=== PATIENT | female | born 1945 | race Caucasian/White ===

== ENCOUNTER 2019-10-12 08:00 | Outpatient (CLI) | payer MEDICARE, BC ==
[2019-10-13 19:52] LABS: CANDIDA GROUP DNA NEGATIVE (NEGATIVE); CANDIDA KRUSEI DNA NEGATIVE (NEGATIVE); TRICHOMONAS VAGINALIS DNA NEGATIVE (NEGATIVE)
== END 2019-10-12 23:59 | disposition home or self-care (01) ==
LOC: LAB.R 08:00
PROVIDERS: ATTEND Obstetrics & Gynecology
DX: N76.0 Acute vaginitis (principal)
CPT/HCPCS: 87661; 87801

== ENCOUNTER 2020-01-10 19:30 | Observation (INO) | payer MEDICARE, BC ==
[2020-01-10 20:02] LABS: BILIRUBIN,URINE NEGATIVE (NEGATIVE); GLUCOSE, URINE (UA) NEGATIVE (NEGATIVE); KETONES,URINE (UA) 15 mg/dL (NEGATIVE); LEUKOCYTE ESTERASE, URINE NEGATIVE (NEGATIVE); NITRITE,URINE NEGATIVE (NEGATIVE); OCCULT BLOOD,URINE TRACE-INTA (NEGATIVE); PROTEIN,URINE 100 mg/dL (NEGATIVE); UROBILINOGEN,URINE 0.2 (NORMAL) E.U./dL (NORMAL)
[2020-01-10 20:02] LABS: BASOPHILS % (AUTO) 0.2 %; EOSINOPHILS # (AUTO) 0.1 10^3/uL (0.0-0.7); EOSINOPHILS % (AUTO) 0.8 %; HGB - HEMOGLOBIN 13.6 g/dL (12.0-16.0); LYMPHOCYTES % (AUTO) 8.7 %; MEAN CORPUSCULAR HEMOGLOBIN 28.8 pg (27.0-31.0); MEAN CORPUSCULAR HGB CONC 35.2 g/dL (32.0-36.0); MEAN CORPUSCULAR VOLUME 81.6 fL (81.0-99.0); MEAN PLATELET VOLUME 8.2 fL (7.9-10.8); MONOCYTES # (AUTO) 0.6 10^3/uL (0.0-1.0); MONOCYTES % (AUTO) 4.8 %; NEUTROPHILS # (AUTO) 10.1 10^3/uL (1.5-6.6); PLT - PLATELET COUNT 266 10^3/uL (130-450); RED BLOOD COUNT 4.73 10^6/uL (4.20-5.40); RED CELL DISTRIBUTION WIDTH 13.1 % (12.0-15.0); WHITE BLOOD COUNT 11.9 x10^3/uL (4.8-10.8)
[2020-01-10] MEDS ORDERED: SODIUM CHLORIDE 0.9% 1,000 ML IV STA (20:09)
[2020-01-10] MEDS ORDERED: ONDANSETRON 4 MG/2 ML VIAL IVP STA (20:09)
[2020-01-10] MEDS ORDERED: HYDROmorphone 1 MG/ML CARPUJECT IVP STA (20:09)
[2020-01-10 20:12] LABS: CLARITY,URINE CLEAR (CLEAR)
[2020-01-10 20:17] LABS: BACTERIA,URINE Rare /HPF (None Seen); RBC,URINE 0-5 /HPF (0-5); SQUAMOUS EPITHELIAL CELL,UR FEW Squamous (<= Few)
--- NOTE | 2020-01-10 20:17 | ED Physician Documentation ---
History of Present Illness - Stated complaint Stated Complaint: FEMALE - Chief complaint Chief Complaint: General - History obtained from History obtained from: Patient - History of Present Illness Timing: Other (About a week and a half ago she developed typical symptoms of UTI. She was started on antibiotics. Now over the last 3 days shows she has shaking chills, headache, myalgias. The worst is the nausea. H/A not too bad.) Review of Systems Constitutional: reports: Chills. denies: Fever Nose: denies: Rhinorrhea / runny nose, Congestion Throat: denies: Sore throat Cardiac: denies: Chest pain / pressure, Palpitations Respiratory: denies: Dyspnea, Cough GI: reports: Nausea, Vomiting, Diarrhea Neurologic: reports: Headache PD PAST MEDICAL HISTORY - Allergies Allergies/Adverse Reactions: Allergies Allergy/AdvReac Type Severity Reaction Status Date / Time Sulfa (Sulfonamide Allergy Unknown Verified 01/10/20 19:34 Antibiotics) PD ED PE NORMAL - Vitals Vital signs reviewed: Yes - General General: Alert and oriented X 3, No acute distress - HEENT HEENT: PERRL, EOMI - Neck Neck: Supple, no meningeal sign, No bony TTP - Cardiac Cardiac: RRR, No murmur - Respiratory Respiratory: No respiratory distress, Clear bilaterally - Abdomen Abdomen: Normal bowel sounds, Soft, Non tender - Female Female : Other (External pelvic examination done with nurse Young at the bedside demonstrates mild candidiasis, no significant cellulitis.) - Back Back: No CVA TTP, No spinal TTP - Derm Derm: Normal color, Warm and dry - Extremities Extremities: No edema, No calf tenderness / cord - Neuro Neuro: Alert and oriented X 3, Normal speech Results - Vitals Vitals: Vital Signs - 24 hr 01/10/20 01/10/20 01/10/20 19:34 19:40 20:59 Temperature 36.8 C Heart Rate 96 95 85 Respiratory 20 16 16 Rate Blood Pressure 200/117 H 187/98 H 168/81 H O2 Saturation 96 98 100 Oxygen O2 Source Room air - Labs Labs: Laboratory Tests 01/10/20 01/10/20 01/10/20 19:52 19:55 19:55 WBC 11.9 H RBC 4.73 Hgb 13.6 Hct 38.6 MCV 81.6 MCH 28.8 MCHC 35.2 RDW 13.1 Plt Count 266 MPV 8.2 Neut # (Auto) 10.1 H Lymph # (Auto) 1.0 L Vance # (Auto) 0.6 Eos # (Auto) 0.1 Baso # (Auto) 0.0 Absolute Nucleated RBC 0.00 Nucleated RBC % 0.0 Sodium 119 L* Potassium 3.7 Chloride 83 L Carbon Dioxide 21 Anion Gap 15.0 H BUN 12 Creatinine 0.8 Estimated GFR (MDRD) 70 L Glucose 117 H Lactic Acid Calcium 9.9 Total Bilirubin 1.3 H AST 36 ALT 33 Alkaline Phosphatase 77 Total Protein 7.5 Albumin 4.3 Globulin 3.2 Albumin/Globulin Ratio 1.3 Lipase 25 Urine Color YELLOW Urine Clarity CLEAR Urine pH 7.0 Ur Specific [place] 1.020 Urine Protein 100 H Urine Glucose (UA) NEGATIVE Urine Ketones 15 H Urine Occult Blood TRACE-INTA Urine Nitrite NEGATIVE Urine Bilirubin NEGATIVE Urine Urobilinogen 0.2 (NORMAL) Ur Leukocyte Esterase NEGATIVE Urine RBC 0-5 Urine WBC 0-3 Ur Squamous Epith Cells FEW Squamous Urine Bacteria Rare Ur Microscopic Review INDICATED Urine Culture Comments NOT INDICATED Influenza A (Rapid) Influenza B (Rapid) 01/10/20 01/10/20 20:22 21:06 WBC RBC Hgb Hct MCV MCH MCHC RDW Plt Count MPV Neut # (Auto) Lymph # (Auto) Vance # (Auto) Eos # (Auto) Baso # (Auto) Absolute Nucleated RBC Nucleated RBC % Sodium Potassium Chloride Carbon Dioxide Anion Gap BUN Creatinine Estimated GFR (MDRD) Glucose Lactic Acid 1.5 Calcium Total Bilirubin AST ALT Alkaline Phosphatase Total Protein Albumin Globulin Albumin/Globulin Ratio Lipase Urine Color Urine Clarity Urine pH Ur Specific [place] Urine Protein Urine Glucose (UA) Urine Ketones Urine Occult Blood Urine Nitrite Urine Bilirubin Urine Urobilinogen Ur Leukocyte Esterase Urine RBC Urine WBC Ur Squamous Epith Cells Urine Bacteria Ur Microscopic Review Urine Culture Comments Influenza A (Rapid) Negative Influenza B (Rapid) Negative PD MEDICAL DECISION MAKING - ED course ED course: 74-year-old woman with recent UTI presents with shaking chills but no fevers, generalized body aches and headache. She has mild candidiasis but that would not explain her symptoms, but for that she received some Diflucan. Work-up here shows pretty significant hyponatremia which is not a pre-existing problem for her. Probably a combination of fluid losses from nausea and diarrhea as well as being on diuretics. This would be hypovolemic hyponatremia. She is put on very gentle IV fluids, 75 mL an hour. Departure - Departure Disposition: ED Place in Observation Clinical Impression: Hyponatremia, Dehydration, Viral syndrome, Candidiasis Vomiting Qualifiers: Vomiting type: unspecified Vomiting Intractability: intractable Nausea presence: with nausea Qualified Code(s): R11.2 - Nausea with vomiting, unspecified Condition: Fair Discharge Date/Time: 01/10/20 22:29
[2020-01-10 20:19] LABS: ALBUMIN 4.3 g/dL (3.2-5.5); ALBUMIN/GLOBULIN RATIO 1.3 (1.0-2.2); BILIRUBIN,TOTAL 1.3 mg/dL (0.2-1.0); CALCIUM 9.9 mg/dL (8.5-10.3); CREATININE 0.8 mg/dL (0.4-1.0); TOTAL PROTEIN 7.5 g/dL (6.7-8.2)
[2020-01-10] MEDS ORDERED: FLUCONAZOLE 100 MG TABLET PO STA (20:39)
[2020-01-10] MEDS ORDERED: METOCLOPRAMIDE 10 MG/2 ML VIAL IVP STA (20:46)
[2020-01-10] MEDS ORDERED: SODIUM CHLORIDE FLUSH 0.9% 10 ML SYRINGE IVP PRN (21:31)
[2020-01-10] MEDS ORDERED: ACETAMINOPHEN 325 MG TABLET PO PRN (21:31)
[2020-01-10] MEDS ORDERED: ONDANSETRON ODT 4 MG TABLET TL PRN (21:31)
[2020-01-10] MEDS ORDERED: ALPRAZolam 0.25 MG TABLET PO PRN (22:07)
[2020-01-10] MEDS ORDERED: traZODone 50 MG TABLET PO PRN (22:07)
[2020-01-10] MEDS ORDERED: hydrALAZINE INJ 20 MG/ML VIAL IVP PRN (22:08)
--- NOTE | 2020-01-10 22:14 | HISTORY & PHYSICAL EXAMINATION ---
Chief Complaint - Chief Complaint Chief Complaint: Nausea and vomiting History of Present Illness - Admitted From Admitted From:: Emergency department - History Obtained From Records Reviewed: Emergency department records History obtained from: Patient and Dr. Hastings Exam Limitations: None - History of Present Illness HPI Comment/Other: Patient is a 74-year-old female who presents to the emergency room with chief complaint of nausea and vomiting x3 days. She has a past medical history of type 2 diabetes mellitus, controlled on oral anti-hyperglycemics, hypertension, chronic gout and recently was diagnosed with a UTI as an outpatient. She was started on oral antibiotics by her PCP about 9 days ago, Continued to have dysuria, so antibiotics were switched, and then she resumed her previous antibiotic. Patient does not recall the exact names, possible ceftazidime? For the last 3 days patient complains of feeling nauseous and having periodic episodes of vomiting with limited p.o. intake. She has had a couple of episodes of diarrhea but no abdominal pain. She denies any fever. She states that her dysuria has since resolved and does not feel like she has UTI anymore but has not been able to eat much. She presented to the emergency room for further evaluation where labs were drawn showing a significant hyponatremia with a sodium level of 119.Her lactic acid was normal.She had a very mild leukocytosis of 11.9. Vital signs were within regular parameters for her, with blood pressures more elevated and certainly not low. Given the hyponatremia and inability to tolerate p.o., observation bed was requested for symptom management and trending of the sodium level, for which the baseline is not known. 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 She lives with her on the [place]. She has 2 adult children who do not live with her. - Substance History Use: Uses substance without health or social issues: NONE - POLST Patient has POLST: No POLST Status: Full Code Meds/Allgy - Allergies Allergies/Adverse Reactions: Allergies Allergy/AdvReac Type Severity Reaction Status Date / Time Sulfa (Sulfonamide Allergy Unknown Verified 01/10/20 19:34 Antibiotics) Review of Systems - Constitutional Constitutional: reports: Fatigue, Weakness. denies: Fever, Chills, Diaphoresis, Night sweats - Cardiovascular Cariovascular: denies: Chest pain - Respiratory Respiratory: denies: SOB at rest, SOB with exertion - Gastrointestinal Gastrointestinal: reports: Diarrhea, Nausea, Vomiting. denies: Abdominal pain, Constipation - Musculoskeletal Musculoskeletal: reports: Other (Cramping in bilateral legs, bilateral arms, right arm worse than left arm. Denies any swelling or skin color changes) - Integumentary Integumentary: denies: Rash Prior Level of Functionality: Fully independent Exam - Vital Signs Reviewed Vital Signs: Yes Vital Signs: Vital Signs x48h Temp Pulse Resp BP Pulse Ox 01/10/20 20:59 85 16 168/81 H 100 01/10/20 19:40 95 16 187/98 H 98 01/10/20 19:34 36.8 C 96 20 200/117 H 96 - Physical Exam General Appearance: positive: No acute distress Eyes Bilateral: positive: Normal inspection ENT: positive: ENT inspection nml, Pharynx nml Neck: positive: Nml inspection, Thyroid nml, No JVD Respiratory: positive: Chest non-tender, No respiratory distress, Breath sounds nml Cardiovascular: positive: Regular rate & rhythm, No murmur, No gallop Peripheral Pulses: positive: 2+ Abdomen: positive: Non-tender, No organomegaly, Nml bowel sounds Skin: positive: Color nml, No rash, Warm Extremities: positive: Nml appearance (Right upper extremity examined and found to have no circumferential edema, erythema, mildly tender to palpation diffusely without any evidence of localized focal tenderness), No pedal edema Neurologic/Psychiatric: positive: Oriented x3, CN's nml (2-12), Motor nml Sepsis Event Note (H) - Evaluation Current Stage of Sepsis: Ruled out Conclusion/Plan - Problem List (1) Hyponatremia Conclusion/Plan: Sodium level of 119 without any neurological deficits. Is unclear if this is acute or chronic given no previous labs to review. I suspect this is probably acute on at least mild chronic hyponatremia, especially given her medications with triamterene, in the setting of a solitary kidney. This is further exacerbated by the recent nausea and vomiting. Assuming this is hypovolemic w hich I suspect it is, should correct with gentle IV fluid hydration which I will continue with normal saline at 75 mL/h and repeat labs in the morning. (2) Nausea and vomiting Conclusion/Plan: Likely secondary to either viral gastroenteritis syndrome versus side effect from recent antibiotics for which she has completed greater than 1 week for the recent UTI that has now since resolved. Advance diet as tolerated. Continue antiemetics, IV fluids, monitor closely. Qualifiers: Vomiting Intractability: non-intractable (3) Type 2 diabetes mellitus Conclusion/Plan: Per patient, her home blood sugar checks have been within normal limits. Will hold metformin. Correct with insulin sliding scale. Check hemoglobin A1c in the morning. Continue diabetic diet to the extent that she can tolerate p.o. Qualifiers: Diabetes mellitus middle or intermediate school principal insulin use: without middle or intermediate school principal use Diabetes mellitus complication status: without complication Qualified Code(s): E11.9 - Type 2 diabetes mellitus without complications (4) Hypertension Conclusion/Plan: Presumably essential hypertension though this may be related to her solitary kidney status. In the setting of type 2 diabetes mellitus. Blood pressure moderately elevated initially in the ER, has since improved somewhat. Will resume home metoprolol, monitor blood pressure closely avoiding EDITA inhibitor for renal protection and avoid any triamterene for electrolyte disturbance. We will add hydralazine as needed for overnight coverage. (5) Gout, chronic Conclusion/Plan: Asymptomatic currently, given dehydration, will hold allopurinol. - Lab Results Lab results reviewed: Yes Fish Bones: 01/10/20 19:55 01/10/20 19:55 - Diagnostic Imaging Results Diagnostic Imaging Results: positive: Prelim report reviewed Core Measures - Anticipated LOS I expect patient to be DC'd or transferred within 96 hours.: Yes - DVT/VTE - Prophylaxis VTE/DVT Device ordered at admit?: Yes
[2020-01-10] MEDS: PROCHLORPERAZINE 10 MG/2 ML VIAL IVP PRN (22:46)
[2020-01-10] MEDS: SODIUM CHLORIDE FLUSH 0.9% 10 ML SYRINGE IVP SCH (22:47)
[2020-01-11] MEDS: METOPROLOL TARTRATE 25 MG TABLET PO SCH ×2 (00:03→08:44)
[2020-01-11] MEDS: SODIUM CHLORIDE 0.9% 1,000 ML IV SCH ×2 (00:04→08:34)
[2020-01-11 01:27] LABS: HB2 TOTAL 14.3 g/dL; HEMOGLOBIN A1C 0.5 g/dL; HEMOGLOBIN A1C % 5.4 % (4.6-6.2)
[2020-01-11] MEDS: HYDROcod/ACETAM 5/325 MG TABLET PO PRN ×2 (04:43→14:33)
[2020-01-11] MEDS: PROCHLORPERAZINE 10 MG/2 ML VIAL IVP PRN (04:43)
[2020-01-11 06:08] LABS: HGB - HEMOGLOBIN 12.3 g/dL (12.0-16.0); MEAN CORPUSCULAR HEMOGLOBIN 29.3 pg (27.0-31.0); MEAN CORPUSCULAR HGB CONC 35.2 g/dL (32.0-36.0); MEAN CORPUSCULAR VOLUME 83.1 fL (81.0-99.0); MEAN PLATELET VOLUME 9.8 fL (7.9-10.8); RED BLOOD COUNT 4.2 10^6/uL (4.20-5.40); RED CELL DISTRIBUTION WIDTH 13.2 % (12.0-15.0); WHITE BLOOD COUNT 9.1 x10^3/uL (4.8-10.8)
[2020-01-11 06:52] LABS: CALCIUM 9.4 mg/dL (8.5-10.3); CREATININE 0.8 mg/dL (0.4-1.0)
[2020-01-11] MEDS ORDERED: PANTOPRAZOLE 40 MG TABLET PO SCH (07:00)
[2020-01-11] MEDS ORDERED: POTASSIUM CHLORIDE 20 MEQ TABLET PO SCH (08:00)
--- NOTE | 2020-01-11 08:08 | PHARMACY PROGRESS NOTE ---
- Best Possible Medication History Admit Date and Time: 01/10/202130 Processed by: Pharmacy Medication History completed: Yes Secondary Source(s): Pharmacy records, Insurance records As the person ultimately responsible for medication therapy, providers are able to order a medication from an existing home medication list in [facility] via the "Reconcile Routine" prior to Confirmation of that medication by call center support consultant. Such practice is discouraged except when the physician, in their clinical judgment, deems that a medical need exists for a medication without regard to previous use.
[2020-01-11] MEDS: INSULIN ASPART 300 UNIT/3 ML PEN SUBQ SCH ×3 (08:32→16:38)
[2020-01-11] MEDS: SODIUM CHLORIDE FLUSH 0.9% 10 ML SYRINGE IVP SCH ×2 (08:33→16:39)
--- NOTE | 2020-01-11 12:47 | Discharge Plan ---
Discharge Plan Problem Reviewed?: Yes Disposition: Home, Self Care Condition: Fair Diet: Regular Activity Restrictions: Activity as Tolerated Shower Restrictions: No Driving Restrictions: No Instruction Topics: Nausea Vomit Control Health Concerns: You were in Observation status to help your nausea and vomiting that presumably caused you to have a very low sodium level. The sodium has only corrected slightly; perhaps you always have a lower than normal sodium level, which therefore needs medical evaluation and can be done as an outpatient. Advance your diet as tolerated and resume your previous medications. Stay well HYDRATED WITH ELECTROLYTE-CONTAINING LIQUIDS (like broths, soups, Pedialyte, Gatorade or Propel). The COVID result is not back yet, call your PCP to get the final results. You should see your PCP in the next 4-5 days for hospital follow-up. Plan of Treatment: As above. Care Goals: Improvement in symptoms and stabilization are the goals. Assessment: The patient understands. Additional Instructions or Follow Up instructions: If you have new or worsening symptoms, call your PCP for advice or go to the ER. No Smoking: If you smoke, Please STOP! Call for help. Follow-up with: Li De La Torre MD [Primary Care Provider] -
[2020-01-11 12:56] LABS: CALCIUM 9.3 mg/dL (8.5-10.3); CREATININE 0.8 mg/dL (0.4-1.0)
[2020-01-11] MEDS ORDERED: SODIUM CHLORIDE 0.9% 500 ML IV ONE (13:02)
[2020-01-11 16:49] VITALS: BP 168/74
[2020-01-11 18:06] LABS: CREATININE 0.8 mg/dL (0.4-1.0)
--- NOTE | 2020-01-11 18:27 | DISCHARGE SUMMARY ---
Discharge Summary Admit Date: 01/10/20 Discharge Date: 01/11/20 Discharging Provider: Dr Martha Dejesus Primary Care Provider: Dr Li Barker Code Status: Attempt Resuscitation Condition at Discharge: Fair Discharge Disposition: 01 Home, Self Care - HPI History of Present Illness: From the admission H&P of Dr Natan Kaur: Patient is a 74-year-old female who presents to the emergency room with chief complaint of nausea and vomiting x3 days. She has a past medical history of type 2 diabetes mellitus, controlled on oral anti-hyperglycemics, hy pertension, chronic gout and recently was diagnosed with a UTI as an outpatient. She was started on oral antibiotics by her PCP about 9 days ago, Continued to have dysuria, so antibiotics were switched, and then she resumed her previous antibiotic. Patient does not recall the exact names (possible ceftazidime). For the last 3 days patient complains of feeling nauseous and having periodic episodes of vomiting with limited p.o. intake. She has had a couple of episodes of diarrhea but no abdominal pain. She denies any fever. She states that her dysuria has since resolved and does not feel like she has UTI anymore but has not been able to eat much. She presented to the emergency room for further evaluation where labs were drawn showing a significant hyponatremia with a sodium level of 119. Her lactic acid was normal. She had a very mild leukocytosis of 11.9. Vital signs were within regular parameters for her, with blood pressures more elevated and certainly not low. Given the hyponatremia and inability to tolerate p.o., an Observation bed was requested for symptom management and trending of the sodium level, for which the baseline is not known. She denied a cough, but due to GI symptoms and chills, a COVID nasal swab was sent from the ER. - HOSPITAL COURSE Hospital Course: 1) Hyponatremia She was started on iv hydration with Normal saline and her BMP was followed q6-8 hours. There was minimal improvement, even with saline bolusing, and overall she hovered at a sodium of 120. Since she was able to eat the following morning, cou ld hydrate and take salty foods, she was discharged with recommendations to stay hydrated with elctrolyte liquids and to have work-up of Hyponatremia as an outpatient with her PCP. 2) N/V There was no fever while here and she needed little anti-emetics and her symptoms resolved by the next morning. Her diet was advanced which she could tolerate, and she was discharged. She presumably had a viral gastroenteritis or nausea from antibiotics. The COVID swab result was pending at discharge and she was advised to get the result at PCP office follow-up. It has subsequently returned negative. 3) Type 2 DM She was on a carb controlled diet and ss Insulin coverage. Her A1c was 5.4 indicating very tight control on her Metformin. 4) HTN She was on her home BP meds. 5) Chronic gout Her Allopurinol was continued. - ALLERGIES Allergies/Adverse Reactions: Allergies Allergy/AdvReac Type Severity Reaction Status Date / Time Sulfa (Sulfonamide Allergy Unknown Verified 01/10/20 19:34 Antibiotics) - MEDICATIONS Home Medications: Ambulatory Orders Medication Instructions Recorded Confirmed ALPRAZolam [Alprazolam] 0.5 mg PO QPM PRN 01/11/20 01/11/20 Benazepril HCl 10 mg PO BID 01/11/20 01/11/20 Fluticasone [Flonase] 2 sprays GABRIELA DAILY 01/11/20 01/11/20 Hydrocodone/Acetaminophen [[place] 1 each PO Q6H PRN 01/11/20 01/11/20 5-325 Tablet] Lovastatin 20 mg PO QPM 01/11/20 01/11/20 Metformin HCl 500 mg PO BID 01/11/20 01/11/20 Metoprolol Tartrate 12.5 mg PO BID 01/11/20 01/11/20 Omeprazole 20 mg PO DAILY 01/11/20 01/11/20 Triamterene/Hydrochlorothiazid 1 each PO DAILY 01/11/20 01/11/20 [Triamterene-Hctz 37.5-25 mg Tb] allopurinoL [Allopurinol] 150 mg PO DAILY 01/11/20 01/11/20 metroNIDAZOLE [Metronidazole] 1 applic TOP QPM 01/11/20 01/11/20 - PHYSICAL EXAM AT DISCHARGE General Appearance: positive: No acute distress, Alert Eyes Bilateral: positive: Normal inspection, EOMI ENT: positive: ENT inspection nml, No signs of dehydration Neck: positive: Nml inspection, No JVD Respiratory: positive: No respiratory distress Cardiovascular: positive: Regular rate & rhythm Abdomen: positive: Non-tender, No distention Skin: positive: Color nml Extremities: positive: No pedal edema - LABS Result Diagrams: 01/11/20 05:49 01/11/20 17:47 - DIAGNOSTIC IMAGING Diagnostic Imaging Results: Final report reviewed - SEPSIS Current Stage of Sepsis: Ruled out - FOLLOW UP Follow Up: She was advised to see her PCP in the next 4-5 days. - TIME SPENT Time Spent in Discharge (Minutes): 45
== END 2020-01-11 19:54 | disposition home or self-care (01) ==
LOC: ED 19:30 → MS2 21:31
PROVIDERS: ADMIT Family Medicine Sports Medicine; ATTEND Internal Medicine
DX: E87.1 Hypo-osmolality and hyponatremia (principal); R11.2 Nausea with vomiting, unspecified; B37.49 Other urogenital candidiasis; E11.9 Type 2 diabetes mellitus without complications; I10 Essential (primary) hypertension; M10.9 Gout, unspecified; Z20.828 Contact with and (suspected) exposure to other viral communicable diseases; Z90.5 Acquired absence of kidney; Z87.440 Personal history of urinary (tract) infections; Z79.84 Long term (current) use of oral hypoglycemic drugs
CPT/HCPCS: 36415; 80048; 80053; 81001; 83036; 83605; 83690; 85025; 85027; 87040; 87275; 87276; 96361; 96374; 96375; 96376; 99284; 99285; A9270; G0378; J1170; J2765; U0004; 81003; 81599; 87086

== ENCOUNTER 2020-03-04 10:48 | Outpatient (CLI) | payer MEDICARE, BC ==
--- NOTE | 2020-03-04 18:53 | XRAY Report ---
PROCEDURE: Chest 2 View X-Ray INDICATIONS: DYSPNEA TECHNIQUE: 2 view(s) of the chest. COMPARISON: None. FINDINGS: Surgical changes and devices: None. Lungs and pleura: No pleural effusions or pneumothorax. Lungs are clear. Mediastinum: Mediastinal contours are normal. Heart size is normal. Bones and chest wall: No suspicious bony abnormalities. Soft tissues appear unremarkable. IMPRESSION: No acute cardiopulmonary disease. Reviewed by: Laurita Lares MD on 03/04/2020 6:52 PM PDT Approved by: Laurita Lares MD on 03/04/2020 6:52 PM PDT Station ID: [id number]
== END 2020-03-04 10:49 | disposition home or self-care (01) ==
LOC: DI 10:48
PROVIDERS: ATTEND Internal Medicine
DX: R06.00 Dyspnea, unspecified (principal)
CPT/HCPCS: 71046

== ENCOUNTER 2020-07-28 08:00 | Outpatient (CLI) | payer MEDICARE, BC | END 2020-07-28 23:59 | disposition home or self-care (01) | LOC: LAB.R 08:00 | PROVIDERS: ATTEND Obstetrics & Gynecology | DX: N76.0 Acute vaginitis (principal) | CPT/HCPCS: 81599; 87661 ==

== ENCOUNTER 2020-08-10 10:21 | Outpatient (CLI) | payer MEDICARE, BC ==
[2020-08-10 10:57] LABS: ALBUMIN 4.2 g/dL (3.2-5.5); ALBUMIN/GLOBULIN RATIO 1.4 (1.0-2.2); BILIRUBIN,TOTAL 0.8 mg/dL (0.2-1.0); CALCIUM 9.8 mg/dL (8.5-10.3); CREATININE 1.1 mg/dL (0.4-1.0); TOTAL PROTEIN 7.2 g/dL (6.7-8.2)
== END 2020-08-10 10:22 | disposition home or self-care (01) ==
LOC: LAB 10:21
PROVIDERS: ATTEND Obstetrics & Gynecology
DX: N89.8 Other specified noninflammatory disorders of vagina (principal); Z90.5 Acquired absence of kidney; R10.2 Pelvic and perineal pain; Q96.9 Turner's syndrome, unspecified
CPT/HCPCS: 36415; 80053

== ENCOUNTER 2020-09-13 14:13 | Outpatient (CLI) | payer MEDICARE, BC ==
[2020-09-13] MEDS ORDERED: IOVERSOL 320 100 ML VIAL IVP ONE ×2 (14:49→16:04)
[2020-09-13] MEDS ORDERED: IOVERSOL 320 50 ML VIAL ONE (14:49)
[2020-09-13] MEDS ORDERED: IOVERSOL 320 50 ML VIAL PO ONE (16:04)
--- NOTE | 2020-09-14 08:48 | CT Report ---
PROCEDURE: PELVIS W INDICATIONS: GONADAL DYSGENESIS, PELVIC PAIN, VAGINAL MASS CONTRAST: IV CONTRAST: Isovue 370 ml: 100 PO CONTRAST: Optiray 320 ml50 TECHNIQUE: After the administration of oral and IV contrast, 5 mm thick sections acquired from the iliac crests to the symphysis. 5 mm thick coronal and sagittal reformats were acquired. For radiation dose reduc tion, the following was used: automated exposure control, adjustment of mA and/or kV according to pa tient size. COMPARISON: None available. FINDINGS: Image quality: Excellent. Peritoneum and bowel: Contrast enhanced bowel loops demonstrate normal wall thickness and caliber. D iverticulosis in the sigmoid colon. No free fluid or air. Genitourinary: The urinary bladder is predominantly decompressed. Bladder wall thickness is normal. The uterus is absent. Left ovary appears normal for age containing a 10 mm cyst. The right ovary was not seen. No suspicious adnexal masses. Nodes and vessels: No iliac, pelvic, or inguinal adenopathy. Iliac vessels demonstrate normal size and enhancement. Bones: No suspicious bony lesions. Miscellaneous: No inguinal hernias. There is a prominent intramuscular lipoma within the right abdu ctor musculature of the upper thigh measuring approximately 8.5 x 11.8 x 18 cm. And contains a few ar eas of coarse calcification. IMPRESSION: 1. Nonvisualization of uterus or right ovary. No suspicious mass in the right adnexa. 2. Definition of the vaginal canal is suboptimal on CT scan. If there is continued concern for vagina l mass, MRI of the pelvis is recommended. 3. Slightly complex right inner thigh fatty mass. This is most likely benign, but malignancy is not e ntirely excluded. Further evaluation with MRI may be useful. 4. Sigmoid diverticulosis. Reviewed by: Lashay Hammond MD on 09/14/2020 8:47 AM PST Approved by: Lashay Hammond MD on 09/14/2020 8:47 AM PST Station ID: [id number]
== END 2020-09-13 14:14 | disposition home or self-care (01) ==
LOC: LAB 14:13 → DI 14:14
PROVIDERS: ATTEND Obstetrics & Gynecology
DX: R93.6 Abnormal findings on diagnostic imaging of limbs (principal); R93.89 Abnormal findings on diagnostic imaging of other specified body structures; R10.2 Pelvic and perineal pain
CPT/HCPCS: 72193; Q9967

== ENCOUNTER 2020-09-13 14:20 | Outpatient (CLI) | payer MEDICARE, BC ==
[2020-09-13 14:41] LABS: CALCIUM 10.6 mg/dL (8.5-10.3)
== END 2020-09-13 14:21 | disposition home or self-care (01) ==
LOC: LAB 14:20
PROVIDERS: ATTEND Obstetrics & Gynecology
DX: R10.2 Pelvic and perineal pain (principal)
CPT/HCPCS: 36415; 80048

== ENCOUNTER 2021-10-05 09:45 | Outpatient (CLI) | payer MEDICARE, BC ==
[2021-10-05 16:27] LABS: MUDS CUTOFF CONCENTRATIONS CUTOFF CONC BELOW:
[2021-10-05 17:53] LABS: BILIRUBIN,URINE NEGATIVE (NEGATIVE); GLUCOSE, URINE (UA) NEGATIVE (NEGATIVE); KETONES,URINE (UA) NEGATIVE (NEGATIVE); LEUKOCYTE ESTERASE, URINE NEGATIVE (NEGATIVE); NITRITE,URINE POSITIVE (NEGATIVE); OCCULT BLOOD,URINE NEGATIVE (NEGATIVE); PROTEIN,URINE NEGATIVE (NEGATIVE); UROBILINOGEN,URINE 0.2 (NORMAL) E.U./dL (NORMAL)
[2021-10-05 17:54] LABS: CLARITY,URINE CLEAR (CLEAR)
[2021-10-05 18:01] LABS: AMPHETAMINE SCREEN,URINE NEGATIVE (NEGATIVE); BARBITURATE SCREEN,UR NEGATIVE (NEGATIVE); BENZODIAZEPINES SCREEN, URINE POSITIVE (NEGATIVE); COCAINE SCREEN URINE NEGATIVE (NEGATIVE); METHADONE SCREEN, URINE NEGATIVE (NEGATIVE); METHAMPHETAMINES SCREEN, URINE NEGATIVE (NEGATIVE); OPIATE SCREEN, URINE POSITIVE (NEGATIVE); OXYCODONE SCREEN, URINE NEGATIVE (NEGATIVE); PROPOXYPHENE SCREEN, URINE NEGATIVE (NEGATIVE); THC CANNABINOID SCREEN, URINE NEGATIVE (NEGATIVE); TRICYCLIC ANTIDEPRESSANT,URINE NEGATIVE (NEGATIVE)
[2021-10-05 20:12] LABS: BACTERIA,URINE Moderate /HPF (None Seen); CASTS, URINE 0-2 Hyaline Casts /LPF; RBC,URINE None Seen /HPF (0-5); SQUAMOUS EPITHELIAL CELL,UR RARE Squamous (<= Few)
== END 2021-10-05 23:59 | disposition home or self-care (01) ==
LOC: LAB.R 09:45
PROVIDERS: ATTEND Internal Medicine
DX: R39.9 Unspecified symptoms and signs involving the genitourinary system (principal); R30.0 Dysuria; Z79.891 Long term (current) use of opiate analgesic
CPT/HCPCS: 80306; 81001; 81003; 87086; 87181

== ENCOUNTER 2021-10-17 11:19 | Outpatient (CLI) | payer MEDICARE, BC ==
[2021-10-17 16:26] LABS: BILIRUBIN,URINE NEGATIVE (NEGATIVE); GLUCOSE, URINE (UA) NEGATIVE (NEGATIVE); KETONES,URINE (UA) NEGATIVE (NEGATIVE); LEUKOCYTE ESTERASE, URINE NEGATIVE (NEGATIVE); NITRITE,URINE NEGATIVE (NEGATIVE); OCCULT BLOOD,URINE NEGATIVE (NEGATIVE); PROTEIN,URINE NEGATIVE (NEGATIVE); UROBILINOGEN,URINE 0.2 (NORMAL) E.U./dL (NORMAL)
[2021-10-17 16:35] LABS: BASOPHILS % (AUTO) 0.5 %; EOSINOPHILS # (AUTO) 0.1 10^3/uL (0.0-0.7); EOSINOPHILS % (AUTO) 2.2 %; HCT - HEMATOCRIT 38.8 % (37.0-47.0); LYMPHOCYTES # (AUTO) 0.9 10^3/uL (1.5-3.5); LYMPHOCYTES % (AUTO) 15.7 %; MEAN CORPUSCULAR HEMOGLOBIN 29.3 pg (27.0-31.0); MEAN CORPUSCULAR HGB CONC 33.5 g/dL (32.0-36.0); MEAN CORPUSCULAR VOLUME 87.6 fL (81.0-99.0); MEAN PLATELET VOLUME 9.2 fL (7.9-10.8); MONOCYTES # (AUTO) 0.4 10^3/uL (0.0-1.0); MONOCYTES % (AUTO) 6.8 %; NEUTROPHILS # (AUTO) 4.4 10^3/uL (1.5-6.6); NEUTROPHILS % (AUTO) 74.5 %; PLT - PLATELET COUNT 226 10^3/uL (130-450); RED BLOOD COUNT 4.43 10^6/uL (4.20-5.40); RED CELL DISTRIBUTION WIDTH 14.4 % (12.0-15.0); WHITE BLOOD COUNT 5.9 x10^3/uL (4.8-10.8)
[2021-10-17 16:40] LABS: CLARITY,URINE CLEAR (CLEAR)
[2021-10-17 16:47] LABS: ALBUMIN 4.4 g/dL (3.2-5.5); ALBUMIN/GLOBULIN RATIO 1.4 (1.0-2.2); ALKALINE PHOSPHATASE 75 IU/L (42-121); ALT ALANINE AMINOTRANSFERASE 23 IU/L (10-60); AST ASPARTATE AMINOTRANSFERASE 30 IU/L (10-42); BILIRUBIN,TOTAL 1.2 mg/dL (0.2-1.0); BUN - BLOOD UREA NITROGEN 24 mg/dL (6-20); CALCIUM 10.1 mg/dL (8.5-10.3); CARBON DIOXIDE - CO2 24 mmol/L (21-32); CHLORIDE 90 mmol/L (101-111); CHOL/HDL RATIO 1.6 (<4.4); CHOLESTEROL 146 mg/dL; CREATININE 0.8 mg/dL (0.4-1.0); GFR - MDRD 70 (>89); GLUCOSE 92 mg/dL (70-100); HDL CHOLESTEROL 92 mg/dL; LDL CHOLESTEROL,CALCULATED 43 mg/dL; LDL/HDL RATIO 0.5 (<4.4); POTASSIUM 4.5 mmol/L (3.5-5.0); SODIUM 124 mmol/L (135-145); TOTAL PROTEIN 7.5 g/dL (6.7-8.2); TRIGLYCERIDES 54 mg/dL; URIC ACID 5.5 mg/dL (2.6-7.2); VLDL CHOLESTEROL 11 mg/dL
[2021-10-17 17:04] LABS: CREATININE,URINE 31.7 mg/dL; MICROALBUMIN,URINE < 0.2 mg/dL (0-300.0)
[2021-10-17 20:41] LABS: ESTIMATED AVERAGE GLUCOSE 103 mg/dL (70-100); HEMOGLOBIN A1c% 5.2 % (4.27-6.07)
== END 2021-10-17 23:59 | disposition home or self-care (01) ==
LOC: LAB.R 11:19
PROVIDERS: ATTEND Internal Medicine
DX: Z00.00 Encounter for general adult medical examination without abnormal findings (principal); F41.9 Anxiety disorder, unspecified; M25.50 Pain in unspecified joint; M54.9 Dorsalgia, unspecified; I12.9 Hypertensive chronic kidney disease with stage 1 through stage 4 chronic kidney disease, or unspecified chronic kidney disease; E11.22 Type 2 diabetes mellitus with diabetic chronic kidney disease; N18.9 Chronic kidney disease, unspecified; F32.A Depression, unspecified; R30.0 Dysuria; E78.5 Hyperlipidemia, unspecified; M79.673 Pain in unspecified foot; M10.9 Gout, unspecified; Z13.6 Encounter for screening for cardiovascular disorders; G47.00 Insomnia, unspecified; Z79.899 Other long term (current) drug therapy
CPT/HCPCS: 80053; 80061; 81001; 81003; 82043; 82570; 83036; 83721; 84443; 84550; 85025; 87086

== ENCOUNTER 2021-11-19 17:03 | Outpatient (CLI) | payer MEDICARE, BC ==
[2021-11-19 17:48] LABS: BASOPHILS % (AUTO) 0.5 %; EOSINOPHILS # (AUTO) 0.3 10^3/uL (0.0-0.7); EOSINOPHILS % (AUTO) 3.6 %; HCT - HEMATOCRIT 38.7 % (37.0-47.0); HGB - HEMOGLOBIN 12.9 g/dL (12.0-16.0); MEAN CORPUSCULAR HEMOGLOBIN 29.1 pg (27.0-31.0); MEAN CORPUSCULAR HGB CONC 33.3 g/dL (32.0-36.0); MEAN CORPUSCULAR VOLUME 87.4 fL (81.0-99.0); MEAN PLATELET VOLUME 8.3 fL (7.9-10.8); MONOCYTES # (AUTO) 0.6 10^3/uL (0.0-1.0); MONOCYTES % (AUTO) 7.9 %; NEUTROPHILS # (AUTO) 6.1 10^3/uL (1.5-6.6); NEUTROPHILS % (AUTO) 75.6 %; PLT - PLATELET COUNT 303 10^3/uL (130-450); RED BLOOD COUNT 4.43 10^6/uL (4.20-5.40); RED CELL DISTRIBUTION WIDTH 14.4 % (12.0-15.0)
--- NOTE | 2021-11-19 17:49 | CT Report ---
PROCEDURE: HEAD WO INDICATIONS: Headache, vertigo TECHNIQUE: Noncontrast 4.5 mm thick angled axial sections acquired from the foramen magnum to the vertex. For r adiation dose reduction, the following was used: automated exposure control, adjustment of mA and/or kV according to patient size. COMPARISON: None. FINDINGS: Image quality: Excellent. CSF spaces: Basal cisterns are patent. No extra-axial fluid collections. Ventricles are normal in size and shape. Brain: No midline shift. No intracranial masses or hemorrhage. Heard-white matter interface is norm al. Skull and face: Calvarium and visualized facial bones are intact, without suspicious lesions. Sinuses: Visualized sinuses and mastoids are clear. IMPRESSION: No acute intracranial finding. Mild global cerebral volume loss and chronic microvascula r ischemic changes. Reviewed by: Vitaly Horne MD on 11/19/2021 5:48 PM PDT Approved by: Vitaly Horne MD on 11/19/2021 5:48 PM PDT Station ID: [id number]
[2021-11-19 18:04] LABS: CREATININE 0.8 mg/dL (0.4-1.0); POTASSIUM 3.8 mmol/L (3.5-5.0)
== END 2021-11-19 17:04 | disposition home or self-care (01) ==
LOC: DI 17:03
PROVIDERS: ATTEND Internal Medicine
DX: R51.9 Headache, unspecified (principal); H81.10 Benign paroxysmal vertigo, unspecified ear; E87.1 Hypo-osmolality and hyponatremia; R53.1 Weakness; I67.82 Cerebral ischemia
CPT/HCPCS: 36415; 80048; 85025

== ENCOUNTER 2021-11-30 06:40 | Outpatient (CLI) | payer MEDICARE, BC | END 2021-11-30 06:41 | disposition EMS.NT | LOC: EMS 06:40 | DX: R29.6 Repeated falls (principal); R42 Dizziness and giddiness ==

== ENCOUNTER 2021-11-30 13:40 | Outpatient (CLI) | payer MEDICARE, BC ==
--- NOTE | 2021-11-30 14:24 | CT Report ---
PROCEDURE: CT brain without contrast INDICATIONS: Altered mental status TECHNIQUE: Noncontrast 5 mm thick angled axial sections acquired from the foramen magnum to the vertex. For rad iation dose reduction, the following was used: automated exposure control, adjustment of mA and/or k V according to patient size. COMPARISON: None. FINDINGS: Image quality: Excellent. CSF spaces: Basal cisterns are patent. No extra-axial fluid collections. Ventricles are normal in size and shape. Brain: No midline shift. No intracranial masses or hemorrhage. Heard-white matter interface is norm al. Cerebral and cerebellar atrophy and multifocal white matter chronic ischemic change. Left enlarg ed perivascular space noted adjacent to the anterior commissure. Skull and face: Calvarium and visualized facial bones are intact, without suspicious lesions. Incide ntal hyperostosis frontalis interna noted. Bilateral intraocular lens replacements noted. Sinuses: Visualized sinuses and mastoids are clear. IMPRESSION: Atrophy and chronic ischemic change without acute hemorrhage or mass effect. Reviewed by: James Nathan MD on 11/30/2021 1:22 PM TIKA Approved by: James Nathan MD on 11/30/2021 1:22 PM AKDT Station ID: [id number]
== END 2021-11-30 13:41 | disposition home or self-care (01) ==
LOC: DI 13:40
PROVIDERS: ATTEND Internal Medicine
DX: G31.9 Degenerative disease of nervous system, unspecified (principal); I67.82 Cerebral ischemia; R41.82 Altered mental status, unspecified

== ENCOUNTER 2021-12-01 11:58 | Outpatient (CLI) | payer MEDICARE, BC | END 2021-12-01 11:59 | disposition critical access hospital (66) | LOC: EMS 11:58 | DX: R41.82 Altered mental status, unspecified (principal) | CPT/HCPCS: A0425; A0429 ==

== ENCOUNTER 2021-12-01 12:11 | Emergency (ER) | payer MEDICARE, BC ==
--- NOTE | 2021-12-01 12:24 | ED Physician Documentation ---
History of Present Illness - Stated complaint Stated Complaint: AMS - Additonal information Additional information: 76-year-old female is brought to the emergency department for evaluation of altered mental status. Per her she had a fall 3 days ago. Her has noticed over the last few days a declining mental status. This morning he found her slumped on the couch. He also reported to EMS that she is recently begun taking cephalexin for suspected urinary tract infection. Unclear if there have been fevers recently. BG 11 for EMS Patient presents to the emergency department disheveled and in nightgown. She has a very large hematoma and bruise on her left forehead. She is somewhat altered confused to place and time. GCS of 14, but actively trying to crawl oob using all 4 extremities. No obvious focal neuro deficits. meds: metformin, lasix, norco, keflex, statin at the bedside reports that 3 days ago patient had a fall in the bathroom in which she hit her head on the plant stand. There was no loss of consciousness. Since then she has become increasingly confused. She did see her primary care provider yesterday and they did an "ultrasound" which was a CT of the head and was negative. reports that on 19 November patient's primary care provider also prescribed hydrocodone for recurrent headaches. But since then he has only given the patient 3-1/2 tablets. He states that over the last month she has started to have a slow steady decline especially with memory changes but has gotten acutely worse over the last 3 days since she fell and struck her head. Review of Systems Unable to obtain: AMS, Confused Constitutional: denies: Fever, Chills Eyes: reports: Reviewed and negative Ears: reports: Reviewed and negative Throat: reports: Reviewed and negative Cardiac: reports: Reviewed and negative Respiratory: reports: Reviewed and negative GI: reports: Reviewed and negative Skin: reports: Abrasion (s) Musculoskeletal: reports: Reviewed and negative Neurologic: reports: Reviewed and negative PD PAST MEDICAL HISTORY - Past Medical History Cardiovascular: None Respiratory: None Neuro: None Endocrine/Autoimmune: Type 2 diabetes GI: GERD : Other Musculoskeletal: Gout - Past Surgical History /[employer]PER[employer]: Oophrectomy, Other - Present Medications Home Medications: Ambulatory Orders Medication Instructions Recorded Confirmed ALPRAZolam [Alprazolam] 0.5 mg PO QPM PRN 01/11/20 12/01/21 Benazepril HCl 10 mg PO BID 01/11/20 12/01/21 Lovastatin 20 mg PO QPM 01/11/20 12/01/21 Metformin HCl 500 mg PO BID 01/11/20 12/01/21 Metoprolol Tartrate 25 mg PO BID 01/11/20 12/01/21 Triamterene/Hydrochlorothiazid 1 each PO DAILY 01/11/20 12/01/21 [Triamterene-Hctz 37.5-25 mg Tb] Duloxetine HCl [Cymbalta] 60 mg PO DAILY 12/01/21 12/01/21 HYDROcod/ACETAM 5/325 [[employer] 5/325] 1 tablet PO Q6H PRN 12/01/21 12/01/21 Ondansetron Odt [Zofran Odt] 4 mg TL Q6H PRN 12/01/21 12/01/21 cephALEXin [Keflex] 500 mg PO BID 12/01/21 12/01/21 - Allergies Allergies/Adverse Reactions: Allergies Allergy/AdvReac Type Severity Reaction Status Date / Time Sulfa (Sulfonamide Allergy Unknown Verified 01/10/20 19:34 Antibiotics) - Social History Does the pt smoke?: No Smoking Status: Never smoker Does the pt drink ETOH?: No Does the pt have substance abuse?: No - Immunizations Immunizations are current?: No - POLST Patient has POLST: No POLST Status: Full Code PD ED PE EXPANDED - General General: Alert, Disheveled, poorly kept - HEENT HEENT: PERRL, EOMI, Other (Large yellowing bruise on the left upper forehead) - Cardiac Cardiac: Regular Rate, Radial strong equal, Pedal strong equal, Cap refill < 2 sec - Respiratory Respiratory: Clear to ausultation jacqueline. No: Distress - Abdomen Abdomen: Normal Bowel sounds. No: Tender to palpation - Derm Derm: Normal color, Warm and dry, Bruising - Extremities Extremities: Normal. No: Deformity, Tenderness - Neuro Neuro: Confused, CNII-XII intact, Normal speech, Other (Patient is very Hypermobile. Needs to be redirected frequently.) - GCS Eye Opening: Spontaneous Motor: Obeys Commands Verbal: Confused Total: 14 Results - Vitals Vitals: Vital Signs - 24 hr 12/01/21 12/01/2112/01/22 12:17 12:50 14:03 Temperature 36.6 C Heart Rate 99 101 H 114 H Respiratory 20 28 H 24 Rate Blood Pressure 135/116 H 162/146 H O2 Saturation 97 99 100 12/01/21 12/01/21 12/01/21 14:40 15:46 16:11 Temperature Heart Rate 128 H 98 112 H Respiratory 28 H 24 26 H Rate Blood Pressure 202/140 H 230/130 H 236/143 H O2 Saturation 100 96 98 12/01/21 12/01/21 12/01/21 16:26 16:59 17:13 Temperature 36.6 C Heart Rate 110 H 89 89 Respiratory 25 H 22 23 Rate Blood Pressure 226/131 H 196/147 H 175/143 H O2 Saturation 24 L 97 98 12/01/21 12/01/21 12/01/21 17:41 18:06 18:17 Temperature 37.6 C Heart Rate 108 H 116 H 113 H Respiratory 24 23 26 H Rate Blood Pressure 218/141 H 234/136 H 232/127 H O2 Saturation 95 98 99 Oxygen O2 Source Room air - EKG (time done) 1328 Rate: Rate (enter#) (108) Rhythm: Sinus tachycardia Intervals: Normal UT. No: Prolonged QT QRS: LVH Ischemia: Q waves (v2-v4) Compare to prior EKG: Old EKG unavailable Computer interpretation: Agree with computer 1455 Rate: Rate (enter#) (130) Rhythm: Sinus tachycardia Kimball: Normal Intervals: Normal UT. No: Prolonged QT QRS: LVH Ischemia: Q waves (V2-V5) Compare to prior EKG: Unchanged from prior EKG Computer interpretation: Agree with computer - Labs Labs: Laboratory Tests 12/01/21 12/01/21 12/01/21 12:25 12:25 12:25 WBC 8.7 RBC 4.67 Hgb 13.7 Hct 40.9 MCV 87.6 MCH 29.3 MCHC 33.5 RDW 14.1 Plt Count 255 MPV 8.6 Neut # (Auto) 7.1 H Lymph # (Auto) 0.9 L Buchanan # (Auto) 0.5 Eos # (Auto) 0.0 Baso # (Auto) 0.0 Absolute Nucleated RBC 0.00 Nucleated RBC % 0.0 PT INR Sodium 135 Potassium 2.8 L Chloride 95 L Carbon Dioxide 25 Anion Gap 15.0 H BUN 28 H Creatinine 0.9 Estimated GFR (MDRD) 61 L Glucose 109 H Calcium 10.1 Phosphorus Magnesium Total Bilirubin 1.7 H AST 40 ALT 30 Alkaline Phosphatase 66 Troponin I High Sens B-Natriuretic Peptide Total Protein 7.0 Albumin 4.2 Globulin 2.8 Albumin/Globulin Ratio 1.5 Lipase 24 TSH Thyroxine (T4) Urine Color Urine Clarity Urine pH Ur Specific [place] Urine Protein Urine Glucose (UA) Urine Ketones Urine Occult Blood Urine Nitrite Urine Bilirubin Urine Urobilinogen Ur Leukocyte Esterase Urine RBC Urine WBC Ur Squamous Epith Cells Urine Bacteria Ur Microscopic Review Urine Culture Comments Salicylates < 6.0 Urine Opiates Screen Ur Oxycodone Screen Urine Methadone Screen Ur Propoxyphene Screen Acetaminophen < 10 L Ur Barbiturates Screen Ur Tricyclics Screen Ur Phencyclidine Scrn Ur Amphetamine Screen U Methamphetamines Scrn U Benzodiazepines Scrn Urine Cocaine Screen U Cannabinoids Screen Ethyl Alcohol < 5.0 SARS-CoV-2 (PCR) 12/01/21 12/01/21 12/01/21 12:25 12:25 12:25 WBC RBC Hgb Hct MCV MCH MCHC RDW Plt Count MPV Neut # (Auto) Lymph # (Auto) Buchanan # (Auto) Eos # (Auto) Baso # (Auto) Absolute Nucleated RBC Nucleated RBC % PT INR Sodium Potassium Chloride Carbon Dioxide Anion Gap BUN Creatinine Estimated GFR (MDRD) Glucose Calcium Phosphorus 2.9 Magnesium 1.4 L Total Bilirubin AST ALT Alkaline Phosphatase Troponin I High Sens 30.3 H* B-Natriuretic Peptide 78 Total Protein Albumin Globulin Albumin/Globulin Ratio Lipase TSH Thyroxine (T4) Urine Color Urine Clarity Urine pH Ur Specific [place] Urine Protein Urine Glucose (UA) Urine Ketones Urine Occult Blood Urine Nitrite Urine Bilirubin Urine Urobilinogen Ur Leukocyte Esterase Urine RBC Urine WBC Ur Squamous Epith Cells Urine Bacteria Ur Microscopic Review Urine Culture Comments Salicylates Urine Opiates Screen Ur Oxycodone Screen Urine Methadone Screen Ur Propoxyphene Screen Acetaminophen Ur Barbiturates Screen Ur Tricyclics Screen Ur Phencyclidine Scrn Ur Amphetamine Screen U Methamphetamines Scrn U Benzodiazepines Scrn Urine Cocaine Screen U Cannabinoids Screen Ethyl Alcohol SARS-CoV-2 (PCR) 12/01/21 12/01/21 12/01/21 12:39 15:15 15:15 WBC RBC Hgb Hct MCV MCH MCHC RDW Plt Count MPV Neut # (Auto) Lymph # (Auto) Buchanan # (Auto) Eos # (Auto) Baso # (Auto) Absolute Nucleated RBC Nucleated RBC % PT 11.8 INR 1.1 Sodium Potassium Chloride Carbon Dioxide Anion Gap BUN Creatinine Estimated GFR (MDRD) Glucose Calcium Phosphorus Magnesium Total Bilirubin AST ALT Alkaline Phosphatase Troponin I High Sens 50.2 H* B-Natriuretic Peptide Total Protein Albumin Globulin Albumin/Globulin Ratio Lipase TSH Thyroxine (T4) Urine Color DARK YELLOW Urine Clarity CLEAR Urine pH Ur Specific [place] Urine Protein Urine Glucose (UA) NEGATIVE Urine Ketones Urine Occult Blood NEGATIVE Urine Nitrite Urine Bilirubin NEGATIVE Urine Urobilinogen Ur Leukocyte Esterase NEGATIVE Urine RBC 0-5 Urine WBC 4-5 Ur Squamous Epith Cells FEW Squamous Urine Bacteria Few Ur Microscopic Review INDICATED Urine Culture Comments NOT INDICATED Salicylates Urine Opiates Screen POSITIVE H Ur Oxycodone Screen NEGATIVE Urine Methadone Screen NEGATIVE Ur Propoxyphene Screen NEGATIVE Acetaminophen Ur Barbiturates Screen NEGATIVE Ur Tricyclics Screen NEGATIVE Ur Phencyclidine Scrn NEGATIVE Ur Amphetamine Screen NEGATIVE U Methamphetamines Scrn NEGATIVE U Benzodiazepines Scrn NEGATIVE Urine Cocaine Screen NEGATIVE U Cannabinoids Screen NEGATIVE Ethyl Alcohol SARS-CoV-2 (PCR) 12/01/21 12/01/21 15:15 16:30 WBC RBC Hgb Hct MCV MCH MCHC RDW Plt Count MPV Neut # (Auto) Lymph # (Auto) Buchanan # (Auto) Eos # (Auto) Baso # (Auto) Absolute Nucleated RBC Nucleated RBC % PT INR Sodium Potassium Chloride Carbon Dioxide Anion Gap BUN Creatinine Estimated GFR (MDRD) Glucose Calcium Phosphorus Magnesium Total Bilirubin AST ALT Alkaline Phosphatase Troponin I High Sens B-Natriuretic Peptide Total Protein Albumin Globulin Albumin/Globulin Ratio Lipase TSH 0.41 Thyroxine (T4) 6.61 Urine Color Urine Clarity Urine pH Ur Specific [place] Urine Protein Urine Glucose (UA) Urine Ketones Urine Occult Blood Urine Nitrite Urine Bilirubin Urine Urobilinogen Ur Leukocyte Esterase Urine RBC Urine WBC Ur Squamous Epith Cells Urine Bacteria Ur Microscopic Review Urine Culture Comments Salicylates Urine Opiates Screen Ur Oxycodone Screen Urine Methadone Screen Ur Propoxyphene Screen Acetaminophen Ur Barbiturates Screen Ur Tricyclics Screen Ur Phencyclidine Scrn Ur Amphetamine Screen U Methamphetamines Scrn U Benzodiazepines Scrn Urine Cocaine Screen U Cannabinoids Screen Ethyl Alcohol SARS-CoV-2 (PCR) NOT DETECTED - Rads (name of study) cxr Radiology: Final report received (no acute cardiopulmonary process) ct head Radiology: Final report received (Minimal left forehead hematoma seen without associated fracture. No intracranial hemorrhage is seen. No significant intracranial abnormality. Remote left deep white matter lacunar infarction can be seen.) angio head Radiology: Final report received (No significant intracranial arterial abnormalities are seen. No intracranial enhancing lesions are seen) angio neck Radiology: Final report received (No stenosis aneurysm occlusions or bleeds) PD MEDICAL DECISION MAKING - ED course Complexity details: reviewed results, re-evaluated patient, considered differential, d/w patient, d/w area development consultant (Zen) ED course: 76-year-old female presents emergency department with acutely altered mental status. Her found her slumped on the couch. When EMS arrived they found her to be a Glascow 14 confused rerequiring frequent redirection direction. She had a ground-level fall 3 days ago in which she struck a planter in the bathroom. There was no loss of consciousness. reports that over the last month she has had a steady decline in weakness and memory changes but it certainly worse since her fall. She did see her primary care provider recently and was diagnosed with a UTI and started on cephalexin. She was also prescribed some Vicodin recently for recurrent headaches though her reports she is only taken 3-1/2 tablets. Patient presents with a Glascow of 14 this oriented to time and place. She needs frequent redirection to avoid pulling at lines or to escape from the bed. She does not however have a focal deficit. She was given 2 mg of Haldol in order to help assist with obtaining the CAT scan. She did seem anxious. Screening labs are most significant for an elevated BUN as well as hypokalemia and hypomagnesia Camille. I did attempt to replace her potassium orally but the patient would not swallow pills. Urine cath completed not consistent with acute infection. Chest x-ray does not show any focal pneumonia. Her screening EKG shows a sinus tachycardia. There are old Q waves in V1 through V4. Initial troponin is 30 but there have been no complaints of recent chest pain or shortness of air. Repeat troponin 50. static. may be swecondary to htn and tachycardia. . 1435: I spoke with daytime hospitalist Dr. Zen Adkins requested to admit the patient for acutely altered mental status but he did not feel that she met the requirements for admission. He felt the emergency department should give her Narcan and replete her potassium and magnesium here. Pt has been unable to take oral meds here 1440: nursing staff has notified me of increasing HR and BP. Repeat EKG ordered, metoprolol and narcan 1455: at reexam of the patient for tachycardia and HTN I note acutely altered facial droop left side with leg and arm weakness on left side. CTA head and neck ordered 1545: Pt has returned from [place]; I have spoken with tele-stroke physician Dr. Naik 1610: I Have spoken with Telestroke neurologist Dr. Huntley (as spelled above). He agrees that the patient has acute left-sided deficits. He wonders if the fact that the patient keeps pushing her tongue out of her mouth could be an extrapyramidal reaction to Haldol and request that we give Benadryl. However she has a smoldering history of worsening cognitive defects over the last 3 days and does not feel she is a candidate for TPA. He would recommend transfer to a hospital for MRI and further evaluation. 1810: Pt has been accepted to [facility] for further neurological evaluation. Accepting physician Dr. Dawkins. Patient will be transferred via ALS. Appropriate [facility] paperwork completed. Plan for transfer was discussed with her who remains in agreement. I did speak with the neuro hospitalist Dr. Singh with [facility] who requested that we administer 300 mg of aspirin in addition to transfer. Pt remains a GCS of 13-14, arouses easily, but continues with left sided deficits. She remains hypertensive despite multiple doses of metoprolol and now enalapril. Departure - Departure Disposition: 02 Transfer Acute Care Hosp Clinical Impression: Stroke-like symptoms, Hypokalemia AMS (altered mental status) Qualifiers: Altered mental status type: coma Coma depth: [place] coma 13-15 Coma timing: at hospital admission Qualified Code(s): R40.2413 - [place] coma scale score 13- 15, at hospital admission NIHSS - Time Time: 14:55 - Level of Consciousness Level of consciousness: (2) Not alert, requires repeated stimulation to attend LOC Questions: (1) Answers one Q correctly LOC Commands: (1) Performs one correctly - Gaze Best Gaze: (0) Normal - Visual Visual: (0) No loss - Facial Palsy Facial Palsy: (1) Minor paralysis - Motor Arms (both separate) Motor Arm (right): (0) No drift Motor Arm (left): (3) No effort against gravity - Motor Legs (both separate) Motor Leg (right): (0) No drift Motor Leg (left): (3) No effort against gravity - Limb Ataxia Limb Ataxia: (1) Present in 1 limb - Sensory Sensory: (0) Normal - Best Language Best Language: (1) [id number] - Dysarthria Dysarthria: (-) Intubated or other barrier, use comment - Extinction and Inattention (formally neg Extinction and inattention: (0) No abnormality - Total Score/Results Total Score/Result: 13
[2021-12-01 12:35] LABS: BASOPHILS % (AUTO) 0.5 %; EOSINOPHILS % (AUTO) 0.5 %; HCT - HEMATOCRIT 40.9 % (37.0-47.0); HGB - HEMOGLOBIN 13.7 g/dL (12.0-16.0); LYMPHOCYTES # (AUTO) 0.9 10^3/uL (1.5-3.5); LYMPHOCYTES % (AUTO) 9.9 %; MEAN CORPUSCULAR HEMOGLOBIN 29.3 pg (27.0-31.0); MEAN CORPUSCULAR HGB CONC 33.5 g/dL (32.0-36.0); MEAN CORPUSCULAR VOLUME 87.6 fL (81.0-99.0); MEAN PLATELET VOLUME 8.6 fL (7.9-10.8); MONOCYTES # (AUTO) 0.5 10^3/uL (0.0-1.0); MONOCYTES % (AUTO) 6.2 %; NEUTROPHILS # (AUTO) 7.1 10^3/uL (1.5-6.6); NEUTROPHILS % (AUTO) 82.3 %; PLT - PLATELET COUNT 255 10^3/uL (130-450); RED BLOOD COUNT 4.67 10^6/uL (4.20-5.40); RED CELL DISTRIBUTION WIDTH 14.1 % (12.0-15.0); WHITE BLOOD COUNT 8.7 x10^3/uL (4.8-10.8)
--- NOTE | 2021-12-01 12:42 | XRAY Report ---
PROCEDURE: Chest 1 View X-Ray INDICATIONS: chest pain TECHNIQUE: One view of the chest was acquired. COMPARISON: 03/04/2020 FINDINGS: Surgical changes and devices: None. Lungs and pleura: No pleural effusions or pneumothorax. Lungs are clear. Mediastinum: The aorta is prominent and tortuous. The cardiac contours are within normal limits. Bones and chest wall: No suspicious bony lesions. Age-appropriate degenerative changes are seen. Mi ld dextroconvex scoliotic curvature is seen. Overlying soft tissues appear unremarkable. IMPRESSION: No acute portable chest abnormality can be seen for age. Reviewed by: Hernan Anaya MD on 12/01/2021 11:41 AM TIKA Approved by: Hernan Anaya MD on 12/01/2021 11:41 AM TIKA Station ID: [id number]
[2021-12-01 12:44] LABS: MUDS CUTOFF CONCENTRATIONS CUTOFF CONC BELOW:
[2021-12-01] MEDS ORDERED: HALOPERIDOL 5 MG/ML VIAL IVP ONE (12:46)
[2021-12-01 12:47] LABS: GLUCOSE, URINE (UA) NEGATIVE (NEGATIVE); LEUKOCYTE ESTERASE, URINE NEGATIVE (NEGATIVE); OCCULT BLOOD,URINE NEGATIVE (NEGATIVE)
[2021-12-01 12:55] LABS: BILIRUBIN,URINE NEGATIVE (NEGATIVE); CLARITY,URINE CLEAR (CLEAR); ICTOTEST,URINE NEGATIVE
[2021-12-01 12:57] LABS: BACTERIA,URINE Few /HPF (None Seen); RBC,URINE 0-5 /HPF (0-5); SQUAMOUS EPITHELIAL CELL,UR FEW Squamous (<= Few)
[2021-12-01 13:00] LABS: AMPHETAMINE SCREEN,URINE NEGATIVE (NEGATIVE); BARBITURATE SCREEN,UR NEGATIVE (NEGATIVE); BENZODIAZEPINES SCREEN, URINE NEGATIVE (NEGATIVE); COCAINE SCREEN URINE NEGATIVE (NEGATIVE); METHADONE SCREEN, URINE NEGATIVE (NEGATIVE); METHAMPHETAMINES SCREEN, URINE NEGATIVE (NEGATIVE); OPIATE SCREEN, URINE POSITIVE (NEGATIVE); OXYCODONE SCREEN, URINE NEGATIVE (NEGATIVE); PROPOXYPHENE SCREEN, URINE NEGATIVE (NEGATIVE); THC CANNABINOID SCREEN, URINE NEGATIVE (NEGATIVE); TRICYCLIC ANTIDEPRESSANT,URINE NEGATIVE (NEGATIVE)
[2021-12-01 13:20] LABS: ALBUMIN 4.2 g/dL (3.2-5.5); ALBUMIN/GLOBULIN RATIO 1.5 (1.0-2.2); ALKALINE PHOSPHATASE 66 IU/L (42-121); ALT ALANINE AMINOTRANSFERASE 30 IU/L (10-60); AST ASPARTATE AMINOTRANSFERASE 40 IU/L (10-42); BILIRUBIN,TOTAL 1.7 mg/dL (0.2-1.0); BUN - BLOOD UREA NITROGEN 28 mg/dL (6-20); CALCIUM 10.1 mg/dL (8.5-10.3); CARBON DIOXIDE - CO2 25 mmol/L (21-32); CHLORIDE 95 mmol/L (101-111); CREATININE 0.9 mg/dL (0.4-1.0); ETOH - ETHANOL < 5.0 mg/dL; GFR - MDRD 61 (>89); GLUCOSE 109 mg/dL (70-100); LIPASE 24 U/L (22-51); POTASSIUM 2.8 mmol/L (3.5-5.0); SODIUM 135 mmol/L (135-145)
[2021-12-01] MEDS ORDERED: POTASSIUM CHLORIDE 20 MEQ TABLET PO STA (13:26)
--- NOTE | 2021-12-01 13:39 | CT Report ---
PROCEDURE: HEAD WO INDICATIONS: ams; fall 3 days ago; left forehead hematoma TECHNIQUE: Noncontrast 4.5 mm thick angled axial sections acquired from the foramen magnum to the vertex. For r adiation dose reduction, the following was used: automated exposure control, adjustment of mA and/or kV according to patient size. COMPARISON: 11/30/2021, 11/11/2021. FINDINGS: Image quality: Excellent. CSF spaces: Basal cisterns are patent. No extra-axial fluid collections. Ventricles are normal in size and shape. Brain: No midline shift. No intracranial masses or hemorrhage. Heard-white matter interface is norm al. Age-appropriate brain parenchymal volume loss and chronic small vessel ischemic change can be se en. There is a remote left deep white matter lacunar infarct seen. Skull and face: There is a minimal left forehead hematoma seen, without an associated fracture. Calv arium and visualized facial bones are intact, without suspicious lesions. Hyperostosis frontalis is i ncidentally noted, which is not frankly abnormal for a female patient of this age. Sinuses: Visualized sinuses and mastoids are clear. IMPRESSION: Minimal left forehead hematoma is seen, without an associated fracture. No intracranial hemorrhage is seen. No significant intracranial abnormality is seen. Age-appropriate brain parenchymal volume loss and chronic small vessel ischemic change can be seen. A remote left deep white matter lacunar infarction can be seen. Reviewed by: Hernan Anaya MD on 12/01/2021 12:37 PM TIKA Approved by: Hernan Anaya MD on 12/01/2021 12:37 PM NDLIZ Station ID: [id number]
[2021-12-01 13:49] LABS: ACETAMINOPHEN < 10 ug/mL (10-30); SALICYLATE < 6.0 mg/dL
[2021-12-01] MEDS: POTASSIUM CHLOR 10 MEQ/100 ML 10 MEQ/100 ML BAG IV SCH ×4 (14:16→18:29)
[2021-12-01 14:18] LABS: MAGNESIUM 1.4 mg/dL (1.7-2.8); PHOSPHORUS 2.9 mg/dL (2.5-4.6)
[2021-12-01] MEDS ORDERED: NALOXONE 0.4 MG/ML VIAL IVP STA (14:34)
[2021-12-01] MEDS ORDERED: MAGNESIUM SULFATE 2 GRAM 2 GM/50 ML BAG IV ONE (14:35)
[2021-12-01] MEDS ORDERED: METOPROLOL 5 MG/5 ML VIAL IVP STA ×2 (14:41→16:44)
[2021-12-01] MEDS ORDERED: IOVERSOL 320 100 ML VIAL IVP ONE ×2 (15:10→15:39)
[2021-12-01 15:45] LABS: INR 1.1 (0.8-1.2); PT - PROTHROMBIN TIME 11.8 secs (9.9-12.6)
--- NOTE | 2021-12-01 15:55 | CT Report ---
PROCEDURE: ANGIO HEAD W/WO INDICATIONS: L sided facial droop CONTRAST: IV CONTRAST: Optiray 320 ml: 80 PO CONTRAST: *NO PO CONTRAST TECHNIQUE: Precontrast 4.5 mm thick angled axial sections acquired from the foramen magnum to the vertex. Afte r the administration of intravenous contrast, 1 mm thick sections acquired through the [place] of [place] is. Postcontrast 4.5 mm thick sections then re-acquired from the foramen magnum to the vertex. 3-di mensional [id number] (MIP) and/or volume rendering reformats were acquired of the c entral intracranial vasculature. For radiation dose reduction, the following was used: automated ex posure control, adjustment of mA and/or kV according to patient size. COMPARISON: Correlation is made with the prior noncontrast head CTs including 12/01/2021 and 11/30/2021. Correlation is also made with the accompanying neck CT angiogram, 12/01/2021. FINDINGS: Image quality: Excellent. Anterior circulation: Intracranial internal carotid arteries are normal in size and flow. The flow within the paired anterior cerebral arteries is normal and symmetric. The flow within the middle cer ebral arteries is normal and symmetric. The anterior communicating artery is seen. No aneurysms are seen. Posterior circulation: Bilateral type origins of the posterior cerebral arteries can be seen, with an associated hypoplastic basilar artery. The distal vertebral arteries are small in size, with the right before segment largely terminating in the right posterior inferior cerebellar artery. No an eurysms are seen. CSF spaces: Ventricles are normal in size and shape. Basal cisterns are patent. No extra-axial flu id collections. Brain: No midline shift. No intracranial bleeds or masses. Heard-white matter interface appears int act. Age-appropriate brain parenchymal volume loss and chronic small vessel ischemic change can be s een. A remote focal infarction can be seen involving the deep white matter of the left frontal lobe. Skull and face: Calvarium and facial bones appear intact, without suspicious lesions. Hyperostosis frontalis is incidentally noted, which is not frankly abnormal for a female patient of this age. Sinuses: Visualized sinuses and mastoids are clear. IMPRESSION: No significant intracranial arterial abnormalities are seen. No intracranial enhancing lesions are seen. Note: Case discussed by telephone with Sue Kent at 2:52 PM [place] time on 12/01/2021. Reviewed by: Hernan Anaya MD on 12/01/2021 2:53 PM AKLIZ Approved by: Hernan Anaya MD on 12/01/2021 2:53 PM TIKA Station ID: [id number]
--- NOTE | 2021-12-01 15:58 | CT Report ---
PROCEDURE: ANGIO NECK W INDICATIONS: L sided facial droop, L neck pain CONTRAST: IV CONTRAST: Optiray 320 ml: 80 PO CONTRAST: *NO PO CONTRAST TECHNIQUE: After the administration of intravenous contrast, 1.5 mm axial sections acquired from the aortic arch to the [place] of [place]. Coronal 3-D maximum intensity projection (MIP) and/or volume rendering ref ormats were then performed. For radiation dose reduction, the following was used: automated exposur e control, adjustment of mA and/or kV according to patient size. COMPARISON: Correlation is made with the accompanying head CT angiogram, 12/01/2021. Correlation is al so made with prior recent noncontrast head CTs, 12/01/2021 and 11/30/2021. FINDINGS: Image quality: Excellent. Carotid system: The visualized aortic arch is within normal limits. The origins of the common caroti d arteries appear patent. The common carotid arteries demonstrate normal calibers and courses. The bifurcation regions appear normal bilaterally. The internal carotid arteries demonstrate normal [place] nehemias and course. Posterior circulation: The origins of the vertebral arteries appear patent. The more superior porti ons of the vertebral arteries demonstrate normal course and caliber. They join to form a normal appe aring basilar artery. Soft tissues: Visualized neck soft tissues demonstrate no suspicious abnormalities. The thyroid is irregular and demonstrates a left isthmus nodule that measures 1.5 cm. Bones: No suspicious bony lesions. Visualized cervical spine appears normally aligned. Advanced c ervical spine degenerative changes are seen, including fusion change at C7-T1 and T1-T2. Moderate lev oconvex cervicothoracic scoliosis can be seen. IMPRESSION: No hemodynamically significant stenosis can be seen within the arteries of the neck. 1.5 cm left isthmus nodule incidentally noted. If clinically appropriate, please consider a follow-up thyroid ultrasound for further evaluation. Advanced bony degenerative changes are seen. The estimate of stenosis included in the report of the imaging study was calculated using the NASCET method Note: Case discussed by telephone with Sue Kent at 2:52 PM [place] time on 12/01/2021. Reviewed by: Hernan Anaya MD on 12/01/2021 2:57 PM TIKA Approved by: Hernan Anaya MD on 12/01/2021 2:57 PM TIKA Station ID: [id number]
[2021-12-01] MEDS ORDERED: diphenhydrAMINE INJ 50 MG/ML VIAL IVP STA (16:04)
[2021-12-01 16:30] LABS: T4 (THYROXINE) 6.61 ug/dL (6.09-12.23)
[2021-12-01 16:34] LABS: THYROID STIMULATING HORMONE 0.41 uIU/mL (0.34-5.60)
[2021-12-01] MEDS ORDERED: METOCLOPRAMIDE 10 MG/2 ML VIAL IVP STA (16:38)
[2021-12-01] MEDS ORDERED: ENALAPRILAT 1.25 MG/ML VIAL IVP STA (17:48)
[2021-12-01] MEDS ORDERED: ASPIRIN 300 MG SUPP PR STA (17:52)
[2021-12-01] MEDS ORDERED: hydrALAZINE INJ 20 MG/ML VIAL IVP STA (18:40)
[2021-12-01 19:13] VITALS: BP 222/120
== END 2021-12-01 20:13 | disposition short-term general hospital (02) ==
LOC: EDUNIT# → ED 12:11
DX: R41.82 Altered mental status, unspecified (principal); E11.9 Type 2 diabetes mellitus without complications; Z79.84 Long term (current) use of oral hypoglycemic drugs; S00.83XA Contusion of other part of head, initial encounter; W18.30XA Fall on same level, unspecified, initial encounter; Y92.002 Bathroom of unspecified non-institutional (private) residence as the place of occurrence of the external cause; E87.6 Hypokalemia; E83.42 Hypomagnesemia; I10 Essential (primary) hypertension
CPT/HCPCS: 36415; 51701; 70450; 70496; 70498; 71045; 80053; 80306; 80307; 81001; 83690; 83735; 83880; 84100; 84436; 84443; 84484; 85025; 85610; 87635; 93005; 96365; 96366; 96367; 96368; 96375; 96376; 99284; 99285; A9270; G0480; J1200; Q9967; 80320; 80329; 81003; 87086

== ENCOUNTER 2021-12-01 19:38 | Outpatient (CLI) | payer MEDICARE, BC | END 2021-12-01 19:39 | disposition short-term general hospital (02) | LOC: EMS 19:38 | PROVIDERS: ATTEND Registered Nurse | DX: R41.82 Altered mental status, unspecified (principal); R29.810 Facial weakness; R53.1 Weakness; I10 Essential (primary) hypertension | CPT/HCPCS: A0425; A0428 ==

== ENCOUNTER 2021-12-20 08:00 | Outpatient (CLI) | payer MEDICARE, BC ==
[2021-12-20 16:20] LABS: CALCIUM 9.5 mg/dL (8.5-10.3); CREATININE 0.9 mg/dL (0.4-1.0)
== END 2021-12-20 23:59 | disposition home or self-care (01) ==
LOC: LAB.R 08:00
PROVIDERS: ATTEND Internal Medicine
DX: E87.6 Hypokalemia (principal); Z79.899 Other long term (current) drug therapy
CPT/HCPCS: 80048

== ENCOUNTER 2022-05-21 08:00 | Outpatient (CLI) | payer MEDICARE, BC ==
[2022-05-21 16:43] LABS: BILIRUBIN,URINE NEGATIVE (NEGATIVE); GLUCOSE, URINE (UA) NEGATIVE (NEGATIVE); KETONES,URINE (UA) NEGATIVE (NEGATIVE); LEUKOCYTE ESTERASE, URINE NEGATIVE (NEGATIVE); NITRITE,URINE POSITIVE (NEGATIVE); OCCULT BLOOD,URINE NEGATIVE (NEGATIVE); PH,URINE 5.5 PH (5.0-7.5); PROTEIN,URINE NEGATIVE (NEGATIVE); UROBILINOGEN,URINE 0.2 (NORMAL) E.U./dL (NORMAL)
[2022-05-21 17:05] LABS: BACTERIA,URINE Many /HPF (None Seen); CLARITY,URINE CLEAR (CLEAR); RBC,URINE None Seen /HPF (0-5); SQUAMOUS EPITHELIAL CELL,UR RARE Squamous (<= Few); WBC,URINE 0-3 /HPF (0-5)
== END 2022-05-21 23:59 | disposition home or self-care (01) ==
LOC: LAB.R 08:00
PROVIDERS: ATTEND Internal Medicine
DX: R39.9 Unspecified symptoms and signs involving the genitourinary system (principal)
CPT/HCPCS: 81001; 87077; 87086; 87181

== ENCOUNTER 2022-06-13 14:45 | Outpatient (CLI) | payer MEDICARE, BC ==
[2022-06-13 16:08] LABS: BILIRUBIN,URINE NEGATIVE (NEGATIVE); GLUCOSE, URINE (UA) NEGATIVE (NEGATIVE); KETONES,URINE (UA) NEGATIVE (NEGATIVE); LEUKOCYTE ESTERASE, URINE NEGATIVE (NEGATIVE); NITRITE,URINE NEGATIVE (NEGATIVE); OCCULT BLOOD,URINE NEGATIVE (NEGATIVE); PROTEIN,URINE NEGATIVE (NEGATIVE); UROBILINOGEN,URINE 0.2 (NORMAL) E.U./dL (NORMAL)
[2022-06-13 16:10] LABS: CLARITY,URINE CLEAR (CLEAR)
[2022-06-13 16:50] LABS: BACTERIA,URINE Rare /HPF (None Seen); RBC,URINE None Seen /HPF (0-5); SQUAMOUS EPITHELIAL CELL,UR FEW Squamous (<= Few); WBC,URINE 0-3 /HPF (0-5)
== END 2022-06-13 23:59 | disposition home or self-care (01) ==
LOC: LAB.R 14:45
PROVIDERS: ATTEND Internal Medicine
DX: R39.9 Unspecified symptoms and signs involving the genitourinary system (principal)
CPT/HCPCS: 81001; 87086